=== PATIENT | female | born 2000 | race American Indian/Alaskan Native ===

== ENCOUNTER 2022-10-25 19:11 | Emergency (ER) | payer MEDICAID ==
[~2022-10-25] VITALS: Ht 165.1 cm; Wt 136.4 kg
[2022-10-25] MEDS ORDERED: morphine 10mg/ml inj. IM ONE (19:55)
[2022-10-25] MEDS ORDERED: orphenadrine citrate 60mg/2ml inj. IM ONE (19:55)
[2022-10-25] MEDS ORDERED: diazepam 5mg tablet PO ONE ×2 (20:15→22:30)
[2022-10-25] MEDS ORDERED: ketorolac trometh. 30mg/ml inj. IM ONE (21:20)
[2022-10-25] MEDS ORDERED: CYCL-1 PO (22:24)
[2022-10-25] MEDS ORDERED: HYDR-3973 PO (22:24)
[2022-10-25 23:10] VITALS: BP 125/78
[2022-10-26] MEDS ORDERED: HYDR-3973 PO (19:10)
== END 2022-10-25 23:11 | disposition home or self-care (01) ==
LOC: ER 19:11
DX: S39.012A Strain of muscle, fascia and tendon of lower back, initial encounter (principal); M41.9 Scoliosis, unspecified; M62.830 Muscle spasm of back; X50.0XXA Overexertion from strenuous movement or load, initial encounter; Y93.89 Activity, other specified; Y92.89 Other specified places as the place of occurrence of the external cause; Y99.8 Other external cause status
CPT/HCPCS: 96372; 99284; J1885; J2274